=== PATIENT | male | born 2000 ===

== ENCOUNTER 2018-10-04 19:26 | Emergency (ER) | payer MEDICAID ==
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
[2018-10-04] MEDS ORDERED: Bacitracin 500 Units/gm Oint Foilpak UD TOP STA (23:25)
[2018-10-04] MEDS ORDERED: Bacitracin 500 Units/gm Oint Foilpak UD ONE (23:30)
[2018-10-04 23:43] VITALS: BP 121/82; PULSE 89; RESP 17; TEMP 98.2; O2SAT 98
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
== END 2018-10-04 23:43 | disposition home or self-care (01) ==
LOC: ED 19:26
DX: S02.5XXA Fracture of tooth (traumatic), initial encounter for closed fracture (principal); S09.90XA Unspecified injury of head, initial encounter; S01.311A Laceration without foreign body of right ear, initial encounter; Y04.0XXA Assault by unarmed brawl or fight, initial encounter